=== PATIENT | female | born 2000 | race Hispanic/Latino ===

== ENCOUNTER 2021-12-20 06:39 | Outpatient (CLI) ==
[~2021-12-20] VITALS: Ht 182.9 cm; Wt 114.0 kg
[2021-12-20] MEDS ORDERED: PRENTAB9 PO (07:17)
[2021-12-20] MEDS ORDERED: HOME MED LIST COMPLETE! XX SCH (07:20)
[2021-12-20 07:28] VITALS: BP 141/79
[2021-12-20 07:33] VITALS: BP 138/82
== END 2021-12-20 08:04 | disposition home or self-care (01) ==
LOC: M LDO 06:39
PROVIDERS: ATTEND Obstetrics & Gynecology
DX: O26.893 Other specified pregnancy related conditions, third trimester (principal); R10.2 Pelvic and perineal pain; Z3A.33 33 weeks gestation of pregnancy
CPT/HCPCS: 59025; G0463

== ENCOUNTER 2022-01-28 05:37 | Outpatient (CLI) ==
[~2022-01-28] VITALS: Ht 180.3 cm; Wt 114.7 kg
[~2022-01-28 05:37] MED LIST: PRENTAB9 PO
[2022-01-28 06:14] VITALS: BP 145/85
[2022-01-28] MEDS ORDERED: HOME MED LIST COMPLETE! XX SCH (06:20)
== END 2022-01-28 06:59 | disposition home or self-care (01) ==
LOC: M LDO 05:37
PROVIDERS: ATTEND Obstetrics & Gynecology
DX: O47.1 False labor at or after 37 completed weeks of gestation (principal); Z3A.39 39 weeks gestation of pregnancy; Z91.048 Other nonmedicinal substance allergy status
CPT/HCPCS: 59025; 76815; G0463

== ENCOUNTER 2022-01-30 23:48 | Outpatient (CLI) ==
[~2022-01-30] VITALS: Ht 182.9 cm; Wt 113.2 kg
[2022-01-31] MEDS ORDERED: ACET325C5 PO (10:51)
== END 2022-01-31 00:30 | disposition home or self-care (01) ==
LOC: M LDO 23:48
PROVIDERS: ATTEND Obstetrics & Gynecology
DX: O47.1 False labor at or after 37 completed weeks of gestation (principal); Z3A.39 39 weeks gestation of pregnancy; Z91.048 Other nonmedicinal substance allergy status
CPT/HCPCS: 59025; G0378; G0463

== ENCOUNTER 2022-01-31 04:09 | Outpatient (CLI) ==
[2022-01-31] MEDS ORDERED: ACET325C5 PO (10:51)
== END 2022-01-31 05:33 | disposition home or self-care (01) ==
LOC: M LDO 04:09
PROVIDERS: ATTEND Obstetrics & Gynecology
DX: O60.03 Preterm labor without delivery, third trimester (principal); O26.893 Other specified pregnancy related conditions, third trimester; R25.2 Cramp and spasm; Z3A.39 39 weeks gestation of pregnancy
CPT/HCPCS: 59025; G0463

== ENCOUNTER 2022-01-31 09:45 | Inpatient (IN) | payer OTHER ==
[~2022-01-31] VITALS: Ht 182.9 cm; Wt 113.4 kg
[2022-01-31] VITALS (41 sets, daily range): BP systolic 75–182; BP diastolic 40–109
[2022-01-31] MEDS ORDERED: METHYLERGONOVINE MALEATE 0.2 MG/ML VIAL (J2210) IM PRN (10:25)
[2022-01-31] MEDS ORDERED: OXYTOCIN INJ 10 UNITS/ML VIAL (J2590) IV PRN (10:25)
[2022-01-31] MEDS ORDERED: OXYTOCIN DRIP 30 UNITS in IV 1 EA IV PRN ×4 (10:25)
[2022-01-31] MEDS ORDERED: LACTATED RINGER'S 1000 ML IV ONE (10:25)
[2022-01-31] MEDS ORDERED: TRANEXAMIC ACID INJection 1,000 MG in NS 100 ML IV PRN (10:25)
[2022-01-31 10:50] LABS: HEMATOCRIT 36.2 % (36.0-47.0); HEMOGLOBIN 12.2 g/dl (12.0-15.5); MEAN CORPUSCULAR HGB CONC 33.7 g/dl (32.0-36.5); PLATELET COUNT, AUTOMATED 307 10^3/uL (150-450); RED BLOOD COUNT 4.21 10^6/uL (4.00-5.40)
[2022-01-31] MEDS ORDERED: ACET325C5 PO (10:51)
[2022-01-31] MEDS ORDERED: HOME MED LIST COMPLETE! XX SCH (10:55)
[2022-01-31] MEDS ORDERED: NALOXONE INJ 0.4MG/1ML VIAL (J2310 PER 1MG) IV PRN (11:05)
[2022-01-31] MEDS ORDERED: LR 500 ML IV PRN (11:05)
[2022-01-31] MEDS ORDERED: ONDANSETRON 4MG 2ML VIAL IV PRN (11:05)
[2022-01-31] MEDS ORDERED: diphenhydrAMINE 50MG/ML VIAL (J1200) IV PRN (11:05)
[2022-01-31] MEDS ORDERED: EPIDURAL/PCA KEYS XX PRN (11:05)
[2022-01-31] MEDS: FENTANYL/ROPIVACAINE/NACL BAG 100 ML EPIDURAL SCH ×2 (11:44→20:48)
[2022-01-31] MEDS: ePHEDrine SULFATE 25 MG/5 ML(5MG/ML) SYRINGE IVP PRN ×3 (12:06→12:25)
[2022-01-31] MEDS: LR 1,000 ML IV SCH ×2 (13:39→20:47)
[2022-01-31] MEDS ORDERED: OXYTOCIN DRIP 30 UNITS in IV 1 EA IV SCH ×2 (16:30→22:00)
[2022-01-31 20:44] LABS: CORD GAS ABE A -9.3; CORD GAS HCO3 A 16.3 MEQ/L; CORD GAS O2 SAT A 80.5 %; CORD GAS PCO2 A 34.8 mmHg; CORD GAS PH A 7.288 UNITS; CORD GAS SBC A 16.8 MEQ/L; CORD GAS TCO2 A 17.4 MEQ/L
[2022-01-31 20:45] LABS: CORD GAS ABE V -10.4; CORD GAS O2 SAT V 74.6 %; CORD GAS PCO2 V 32.4 mmHg; CORD GAS PH V 7.283 UNITS; CORD GAS PO2 V 33.4 mmHg; CORD GAS SBC V 15.9 MEQ/L
[2022-01-31] MEDS ORDERED: ANUSOL HC CREAM 30GM TOP PRN (22:00)
[2022-01-31] MEDS ORDERED: DIBUCAINE 1% OINTMENT 30GM TOP PRN (22:00)
[2022-01-31] MEDS ORDERED: METHYLERGONOVINE MALEATE 0.2 MG TAB PO PRN (22:00)
[2022-01-31] MEDS ORDERED: RHOGAM 300 MCG (1500 IU) INJ (J2790) IM SCH (22:00)
[2022-01-31] MEDS ORDERED: OXYTOCIN INJ 10 UNITS/ML VIAL (J2590) IV ONE (22:00)
[2022-01-31] MEDS ORDERED: LR 1,000 ML IV SCH (22:00)
[2022-01-31] MEDS ORDERED: IBUPROFEN 600MG TAB PO PRN (22:00)
[2022-01-31] MEDS ORDERED: DOCUSATE SODIUM 100MG CAPSULE PO PRN (22:00)
[2022-01-31] MEDS ORDERED: MOM 30ML SUSPENSION UDC PO PRN (22:00)
[2022-01-31] MEDS ORDERED: OXYTOCIN DRIP 30 UNITS in IV 1 EA IV ONE (22:00)
[2022-01-31] MEDS ORDERED: ACETAMINOPHEN TAB 650MG DOSE (2X325MG) PO PRN (22:00)
[2022-01-31] MEDS ORDERED: ACETAMINOPHEN 500 MG TAB PO PRN (22:00)
[2022-02-01 06:00] VITALS: BP 123/64
[2022-02-01 07:46] LABS: HEMATOCRIT 30.1 % (36.0-47.0); MEAN CORPUSCULAR HEMOGLOBIN 29.2 pg (27.0-33.0); MEAN CORPUSCULAR HGB CONC 32.9 g/dl (32.0-36.5); MEAN CORPUSCULAR VOLUME 88.8 fl (80.0-96.0); PLATELET COUNT, AUTOMATED 245 10^3/uL (150-450); RED BLOOD COUNT 3.39 10^6/uL (4.00-5.40); WHITE BLOOD COUNT 11.1 10^3/uL (4.0-10.0)
[2022-02-01 08:11] LABS: HEMOGLOBIN 9.9 g/dl (12.0-15.5)
[2022-02-01] MEDS: PRENATAL VITAMINS CHEWABLE TABLET PO SCH (08:40)
[2022-02-01 18:00] VITALS: BP 112/56
[2022-02-02 06:00] VITALS: BP 131/82
[2022-02-02] MEDS ORDERED: IBUP-1022 PO (06:48)
[2022-02-02] MEDS ORDERED: COLA100C5 PO (06:48)
[2022-02-02] MEDS ORDERED: ACET1TAB55 PO (06:48)
[2022-02-02] MEDS: PRENATAL VITAMINS CHEWABLE TABLET PO SCH (08:06)
[2022-02-02] MEDS ORDERED: MEASLES,MUMPS,RUBELLA VACCINE INJ (MMR-II) (90707) SC.IMMUN ONE (09:00)
== END 2022-02-02 12:30 | disposition home or self-care (01) | DRG 807 ==
LOC: M LDO 09:45 → M LDI 09:59 → M OBS 23:20
PROVIDERS: ADMIT Obstetrics & Gynecology; ATTEND Obstetrics & Gynecology
PROC: 10E0XZZ Delivery of Products of Conception, External Approach (ICD-10-PCS; principal; 2022-01-31)
PROC: 0HQ9XZZ Repair Perineum Skin, External Approach (ICD-10-PCS; 2022-01-31)
DX: O70.0 First degree perineal laceration during delivery (principal); Z37.0 Single live birth; Z3A.39 39 weeks gestation of pregnancy